=== PATIENT | female | born 1990 | race Caucasian/White ===

== ENCOUNTER 2016-12-31 10:00 | Observation (INO) | payer OTHER ==
[~2016-12-31] VITALS: Ht 165 cm; Wt 79.7 kg
[2016-12-31] MEDS ORDERED: PREN1TAB80 PO (13:42)
[2016-12-31 13:43] VITALS: BP 116/72
[2016-12-31] MEDS ORDERED: INFLUENZA VIRUS VACCINE QVS 2016-17 (3YR+)/PF 60 MCG/0.5 ML SYRINGE IM ONE (14:45)
== END 2016-12-31 13:10 | disposition home or self-care (01) ==
LOC: 4S 10:15
PROVIDERS: ADMIT Obstetrics & Gynecology; ATTEND Obstetrics & Gynecology
DX: Z34.93 Encounter for supervision of normal pregnancy, unspecified, third trimester (principal); Z3A.38 38 weeks gestation of pregnancy
CPT/HCPCS: 59025; G0378

== ENCOUNTER 2016-12-31 14:31 | Observation (INO) | payer OTHER ==
[~2016-12-31] VITALS: Ht 30.5 cm; Wt 79.4 kg
[~2016-12-31 14:31] MED LIST: PREN1TAB80 PO
[2017-01-03 16:42] VITALS: BP 106/72
== END 2017-01-03 17:20 | disposition home or self-care (01) ==
LOC: 4S 01-03 15:45
PROVIDERS: ADMIT Obstetrics & Gynecology; ATTEND Obstetrics & Gynecology
DX: Z34.93 Encounter for supervision of normal pregnancy, unspecified, third trimester (principal); Z3A.38 38 weeks gestation of pregnancy
CPT/HCPCS: 59025; G0378

== ENCOUNTER 2017-01-04 12:15 | Inpatient (IN) | payer OTHER ==
[~2017-01-04] VITALS: Ht 165 cm; Wt 79.4 kg
[2017-01-04] MEDS ORDERED: OXYTOCIN 30 UNITS/LACT RINGERS 500 ML IV PRN (12:58)
[2017-01-04] MEDS ORDERED: RINGERS SOLUTION,LACTATED 1,000 ML IV PRN (12:58)
[2017-01-04] MEDS ORDERED: METOCLOPRAMIDE HCL 5 MG/ML 2 ML VIAL IVP PRN (13:00)
[2017-01-04] MEDS ORDERED: CITRIC ACID/SODIUM CITRATE 30 ML SOLUTION UDCUP PO PRN (13:00)
[2017-01-04] MEDS ORDERED: FentaNYL CITRATE-PF 100 MCG/2 ML VIAL IVP PRN (13:00)
[2017-01-04] MEDS: RINGERS SOLUTION,LACTATED 1,000 ML IV SCH ×2 (13:42→21:37)
[2017-01-04 13:49] LABS: EOSINOPHILS # (AUTO) 0.03 K/uL (0.00-0.70); EOSINOPHILS % (AUTO) 0.24 % (1.0-6.0); HEMATOCRIT 41.2 % (36-46); HEMOGLOBIN 14.1 g/dL (12.0-16.0); LYMPHOCYTES # (AUTO) 1.1 K/uL (1.0-4.8); LYMPHOCYTES % (AUTO) 9.7 % (22.0-44.0); MEAN CORPUSCULAR HEMOGLOBIN 32.2 pg (26.0-34.0); MEAN CORPUSCULAR HGB CONC 34.2 G/dL (31.0-37.0); MEAN CORPUSCULAR VOLUME 94 fL (80-100); MONOCYTES # (AUTO) 0.7 K/uL (0.1-1.0); MONOCYTES % (AUTO) 6.4 % (2.0-9.0); NEUTROPHILS # (AUTO) 9.4 K/uL (1.8-7.7); NEUTROPHILS % (AUTO) 83.6 % (40.0-70.0); RED BLOOD CELL COUNT(AUTO) 4.37 MIL/uL (4.00-5.20); RED CELL DISTRIBUTION WIDTH 14.1 % (11.5-14.5); WHITE BLOOD COUNT (AUTO) 11.2 K/uL (4.5-11.0)
[2017-01-04 15:01] VITALS: BP 109/80
[2017-01-04] MEDS ORDERED: FentaNYL/BUPIV 0.125%/NS/PF 200 ML ED ONE (16:40)
[2017-01-04] MEDS ORDERED: FentaNYL/BUPIV 0.125%/NS/PF 200 ML ED PRN (18:27)
[2017-01-04] MEDS ORDERED: DiphenhydrAMINE HCL 50 MG/ML VIAL IVP PRN (18:30)
[2017-01-04] MEDS ORDERED: ONDANSETRON HCL 4 MG/2 ML VIAL IVP PRN (18:30)
[2017-01-04] MEDS: OXYGEN THERAPY IH SCH (19:20)
[2017-01-04] MEDS ORDERED: AMPICILLIN SODIUM 2 GM/NS 100 ML IV ONE (21:50)
[2017-01-05] MEDS: AMPICILLIN SODIUM 1 GM/NS 50 ML IV SCH ×4 (01:30→13:39)
[2017-01-05] MEDS: RINGERS SOLUTION,LACTATED 1,000 ML IV SCH ×2 (03:41→10:12)
[2017-01-05] MEDS: OXYGEN THERAPY IH SCH ×2 (08:00→22:32)
[2017-01-05] MEDS ORDERED: LANOLIN 7 GM OINTMENT TP PRN (13:45)
[2017-01-05] MEDS ORDERED: MEASLES/MUMPS/RUBELLA VACCINE, LIVE 0.5 ML/VIAL SQ ONE (13:45)
[2017-01-05] MEDS ORDERED: ACETAMINOPHEN/CODEINE 300-30 MG TABLET PO PRN ×2 (13:45)
[2017-01-05 15:56] LABS: BASOPHILS # (AUTO) 0.01 K/uL (0.00-0.20); BASOPHILS % (AUTO) 0.1 % (0.0-2.0); EOSINOPHILS # (AUTO) 0.02 K/uL (0.00-0.70); HEMATOCRIT 37.9 % (36-46); HEMOGLOBIN 13.1 g/dL (12.0-16.0); LYMPHOCYTES # (AUTO) 0.8 K/uL (1.0-4.8); LYMPHOCYTES % (AUTO) 4.8 % (22.0-44.0); MEAN CORPUSCULAR HEMOGLOBIN 32.7 pg (26.0-34.0); MEAN CORPUSCULAR HGB CONC 34.5 G/dL (31.0-37.0); MEAN CORPUSCULAR VOLUME 95 fL (80-100); MONOCYTES # (AUTO) 1.1 K/uL (0.1-1.0); MONOCYTES % (AUTO) 6.5 % (2.0-9.0); NEUTROPHILS # (AUTO) 15.2 K/uL (1.8-7.7); RED CELL DISTRIBUTION WIDTH 14.4 % (11.5-14.5); WHITE BLOOD COUNT (AUTO) 17.2 K/uL (4.5-11.0)
[2017-01-05 16:06] LABS: NEUTROPHILS % (AUTO) 88.6 % (40.0-70.0)
[2017-01-05] MEDS: BENZOCAINE 20%/MENTHOL 56 GM SPRAY CANISTER TP PRN (16:23)
[2017-01-05] MEDS: GLYCERIN/WITCH HAZEL LEAF 40 PADS JAR TP PRN (16:23)
[2017-01-05] MEDS ORDERED: FentaNYL/BUPIV 0.125%/NS/PF 200 ML ED ONE (19:57)
[2017-01-05] MEDS ORDERED: LIDOCAINE HCL/PF 2% 5 ML VIAL ONE (20:00)
[2017-01-05] MEDS: MAGNESIUM HYDROXIDE SUSPENSION 30 ML UDCUP PO SCH (22:32)
[2017-01-05] MEDS: IBUPROFEN 600 MG TABLET PO PRN (22:32)
[2017-01-06] MEDS: GLYCERIN/WITCH HAZEL LEAF 40 PADS JAR TP PRN (08:04)
[2017-01-06] MEDS: IBUPROFEN 600 MG TABLET PO PRN (08:04)
[2017-01-06] MEDS: MAGNESIUM HYDROXIDE SUSPENSION 30 ML UDCUP PO SCH (08:04)
[2017-01-06] MEDS: BENZOCAINE 20%/MENTHOL 56 GM SPRAY CANISTER TP PRN (08:04)
[2017-01-06] MEDS ORDERED: IBUP-2070 PO (11:25)
[2017-01-06] MEDS ORDERED: DSS100 PO (11:27)
== END 2017-01-06 14:45 | disposition home or self-care (01) | DRG 775 ==
LOC: OBSVTOIN 12:15 → 4S 12:15
PROVIDERS: ADMIT Obstetrics & Gynecology; ATTEND Obstetrics & Gynecology
PROC: 10D07Z6 Extraction of Products of Conception, Vacuum, Via Natural or Artificial Opening (ICD-10-PCS; principal; 2017-01-04)
PROC: 0DQR0ZZ Repair Anal Sphincter, Open Approach (ICD-10-PCS; 2017-01-04)
PROC: 0W8NXZZ Division of Female Perineum, External Approach (ICD-10-PCS; 2017-01-04)
PROC: 3E0S3CZ (ICD-10-PCS; 2017-01-04)
PROC: 00HU33Z Insertion of Infusion Device into Spinal Canal, Percutaneous Approach (ICD-10-PCS; 2017-01-04)
PROC: 3E0134Z Introduction of Serum, Toxoid and Vaccine into Subcutaneous Tissue, Percutaneous Approach (ICD-10-PCS; 2017-01-05)
DX: O75.81 Maternal exhaustion complicating labor and delivery (principal); O70.20 Third degree perineal laceration during delivery, unspecified; Z37.0 Single live birth; O66.5 Attempted application of vacuum extractor and forceps; Z3A.38 38 weeks gestation of pregnancy; Z23 Encounter for immunization
CPT/HCPCS: 86850; 86900; 86901; 90707; J0290; J2590; J2765; J3490; J7120